=== PATIENT | female | born 1990 | race American Indian/Alaskan Native ===

== ENCOUNTER 2017-02-12 20:10 | Emergency (ER) | payer SELFPAY ==
[2017-02-12 23:44] VITALS: BP 116/72
== END 2017-02-13 00:19 | disposition left against medical advice (07) ==
LOC: ED 20:10
DX: R51 Headache (principal); M54.9 Dorsalgia, unspecified; V89.2XXA Person injured in unspecified motor-vehicle accident, traffic, initial encounter; Y93.9 Activity, unspecified; Y92.410 Unspecified street and highway as the place of occurrence of the external cause; Y99.9 Unspecified external cause status; Z53.21 Procedure and treatment not carried out due to patient leaving prior to being seen by health care provider

== ENCOUNTER 2021-05-17 11:53 | Emergency (ER) | payer OTHER, MEDICAID ==
[2021-05-17] MEDS ORDERED: SODIUM CHLORIDE 0.9% 1000 ML IV SOLN IV ONE (12:12)
[2021-05-17] MEDS ORDERED: IPRATROPIUM/ALBUTEROL SULFATE 3 ML AMPUL.NEB IH ONE ×2 (12:13→15:12)
[2021-05-17] MEDS ORDERED: methylPREDNISolone Sod Succinate 125 MG/2 ML INJ IV ONE (12:14)
[2021-05-17] MEDS ORDERED: ACETAMINOPHEN 500 MG TAB PO ONE (12:15)
--- NOTE | 2021-05-17 12:19 | Emergency Department Report ---
HPI - General Chief Complaint: Dyspnea/Respdistress Time Seen by Provider: 05/17/21 12:03 - HPI HPI: 30-year-old female with past medical history significant for asthma presents complaining of 3 days of URI symptoms including fever/chills, body aches, and for the past couple days with cough productive of sputum, chest tightness, and shortness of breath. She says her children are also sick at home with upper respiratory infections. She saw her regular doctor over 1 week ago and was prescribed a Medrol Dosepak but did not take it. She also was prescribed a nebulizer which she has but has not used. She is only used her albuterol inhaler once, this morning. She is also been taking Mucinex. Her chest pain is nonradiating but feels like congestion in her chest which makes it difficult to take a deep breath. Her LMP started 5 days ago. Denies any associated headache, vision change, neck pain, syncope, abdominal pain, nausea, dysuria, back pain, focal weakness, sensory changes, or any other complaints. She is not vaccinated against COVID-19. ED Past Medical Hx - Past Medical History Hx Hypertension: No Hx Diabetes: No Hx Deep Vein Thrombosis: No Hx Sickle Cell Disease: No Hx Seizures: No Hx Kidney Stones: Yes Hx Asthma: Yes - Social History Smoking Status: Never Smoker Substance Use Type: None - Medications Home Medications: Home Medications Medication Instructions Recorded Confirmed Last Taken Type Albuterol 0.63% NEBS 1 inh INHALATION QID PRN 05/17/21 05/17/21 Unknown History Azithromycin [Zithromax Z-JOYCE] 0 mg PO DAILY #1 pack 05/17/21 Unknown Rx Ipratropium/Albuter (Nf) 1 puff INHALATION QID PRN 05/17/21 05/17/21 Unknown History methylPREDNISolone [Medrol 4MG 4 mg PO DAILY #1 tab.ds.pk 05/17/21 Unknown Rx DOSEPAK (21 tabs)] ED Review of Systems ROS: Stated complaint: SOB/FEVER Other details as noted in HPI Constitutional: chills, fever, malaise Eyes: denies: eye pain, vision change ENT: congestion. denies: throat pain Respiratory: cough, shortness of breath Cardiovascular: chest pain. denies: palpitations, edema, syncope Gastrointestinal: denies: abdominal pain, nausea, vomiting Genitourinary: denies: dysuria, frequency Musculoskeletal: denies: back pain, arthralgia Skin: denies: rash, lesions Neurological: denies: headache, weakness, numbness Hematological/Lymphatic: denies: easy bleeding Physical Exam - Physical Exam Vital Signs: Vital Signs 05/17/21 11:55 Temperature 102.9 F H Pulse Rate 132 H Respiratory 20 Rate Blood Pressure 139/77 O2 Sat by Pulse 98 Oximetry Physical Exam: GENERAL: Well developed and well nourished. No acute distress HEAD: Normocephalic. No obvious signs of trauma. ENT: Very dry mucous membranes. EYES: Extraocular movements are intact. Pupils are equal round and reactive to light bilaterally NECK: Supple. Full ROM is intact. Trachea is midline. LUNGS: Tachypneic but not in respiratory distress. Equal chest rise bilaterally. Coarse breath sounds throughout. Prolonged expiratory phase without discrete rales or wheezes. CARDIOVASCULAR: Tachycardic but with regular rhythm. No murmurs or rubs. VASCULAR: Cap refill < 2 seconds. 2+ peripheral pulses. ABDOMEN: Abdomen is soft and nondistended. There is no significant tenderness, guarding or rebound. SKIN: Skin is warm and dry NEURO: Patient is awake, alert, and oriented. 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 No focal deficits. Normal motor and sensory exam throughout. Normal speech. MUSCULOSKELETAL: No obvious deformities. No significant tenderness. Normal ROM throughout. BACK/SPINE: No costovertebral angle tenderness. ED Course Vital Signs 05/17/21 11:55 Temperature 102.9 F H Pulse Rate 132 H Respiratory 20 Rate Blood Pressure 139/77 O2 Sat by Pulse 98 Oximetry ED Medical Decision Making - Lab Data Result diagrams: 05/17/21 12:39 05/17/21 12:26 - EKG Data -: EKG Interpreted by Pa - EKG Data 05/17/21 14:17 Sinus tachycardia. Normal axis. Normal intervals. No ectopy. No significant ST segment or T wave abnormalities - Radiology Data Radiology results: report reviewed - Medical Decision Making 30-year-old female with history of asthma presenting with 3 days of URI symptoms including chest tightness and shortness of breath as well as productive cough. On initial assessment she is febrile with a temp of 102.9 and tachycardic in the 130s. She has normal oxygen saturation on room air. On physical examination she has very dry mucous membranes. She is tachycardic. She has coarse breath sounds throughout the bilateral lung gay with prolonged expiratory phases but no discrete wheezes or rales. We will initiate the sepsis order set and draw full set of labs and cultures. Will obtain EKG and chest x-ray. We will give 2 L of IV fluids. We will give 125 mg of IV Solu-Medrol and DuoNeb and reassess. Labs reveal no significant leukocytosis but hemoglobin is elevated at 16 consistent with severe dehydration with hemoconcentration. Kidney function is within normal limits and there are no significant electrolyte abnormalities. Chest x-ray reveals no acute abnormalities. On repeat assessment, the patient reports that she feels much improved. However she remains tachycardic and fluids are still running. At 4:20 PM she remains tachycardic in the 110s but reports much improved symptoms. Lung auscultation reveals improved lung gay without prolonged expiratory phase. Nonetheless, given that she remains tachycardic even after greater than 30 mL/kg of IV fluid we will obtain CTA of the chest to assess for evidence of PE versus pneumonia versus other intrathoracic pathology. CTA of the chest reveals no evidence of PE but there are bilateral pulmonary infiltrates consistent with atypical/viral pneumonia. On repeat assessment, the patient's tachycardia has almost entirely resolved. I discussed the results of her CT findings as well as the labs revealing her severe dehydration. We discussed options for management and she will go home with a prescription for Z-Joyce, Medrol Dosepak, and has her home nebulizer already. She will follow up with the primary care doctor in a few days. She will self isolate at home given the possibility of COVID-19 pneumonia. She was encouraged to stay hydrated. Patient expressed understanding agreement with this plan of care. Critical care attestation.: If time is entered above; I have spent that time in minutes in the direct care of this critically ill patient, excluding procedure time. ED Disposition Clinical Impression: Suspected COVID-19 virus infection, URI (upper respiratory infection), Pneumonia, Dehydration Disposition: 01 HOME / SELF CARE / HOMELESS Is pt being admited?: No Instructions: Bacterial Pneumonia (ED), Upper Respiratory Infection, Adult, Community-Acquired Pneumonia, Adult, Dehydration, Adult, COVID-19 Frequently Asked Questions, COVID-19 Prescriptions: methylPREDNISolone [Medrol 4MG DOSEPAK (21 tabs)] 4 mg PO DAILY #1 tab.ds.pk Azithromycin [Zithromax Z-JOYCE] 0 mg PO DAILY #1 pack Referrals: PRIMARY CARE, [Primary Care Provider] - 3-5 Days
[2021-05-17 13:37] LABS: Basophils % (Auto) 0.6 % (0.0-1.8); Eosinophils % (Auto) 0.3 % (0.0-4.3); Hematocrit 49.4 % (30.3-42.9); Lymphocytes # (Auto) 0.7 K/mm3 (1.2-5.4); Mean Corpuscular HGB Conc 32 % (30-34); Mean Corpuscular Volume 94 fl (79-97); Monocytes # (Auto) 0.8 K/mm3 (0.0-0.8); Monocytes % (Auto) 12.3 % (0.0-7.3); Platelet Count 207 K/mm3 (140-440); Red Blood Count 5.28 M/mm3 (3.65-5.03); Red Cell Distribution Width 11.9 % (13.2-15.2)
[2021-05-17 13:48] LABS: INR 0.9 (0.87-1.13); Partial Thromboplastin Time 27.8 Sec. (24.2-36.6)
[2021-05-17 13:54] LABS: Alanine Aminotransferase 56 units/L (7-56); Albumin 4.5 g/dL (3.9-5); BUN/Creatinine Ratio 16; Bilirubin,Direct < 0.2 mg/dL (0-0.2); Blood Urea Nitrogen 11 mg/dL (7-17); Calcium 9.4 mg/dL (8.4-10.2); Hemolysis Index 16
--- NOTE | 2021-05-17 15:08 | XRay Report ---
CHEST 1 VIEW 05/17/2021 2:03 PM INDICATION / CLINICAL INFORMATION: SOB, , CP. COMPARISON: 03/30/2013 FINDINGS: SUPPORT DEVICES: None. HEART / MEDIASTINUM: No significant abnormality. LUNGS / PLEURA: No significant pulmonary or pleural abnormality. No pneumothorax. ADDITIONAL FINDINGS: No significant additional findings. IMPRESSION: 1. No acute findings. Signer Name: Julius Mackay MD Signed: 05/17/2021 3:04 PM Workstation Name: [id number]
[2021-05-17 15:24] LABS: Bilirubin,Urine NEG (Negative); Blood,Urine SM (Negative); Color,Urine Straw (Yellow); Mucus,Urine FEW /HPF; Protein,Urine <15 mg/dL mg/dL (Negative); Urobilinogen,Urine < 2.0 mg/dL (<2.0); WBC,Urine < 1.0 /HPF (0.0-6.0)
--- NOTE | 2021-05-17 17:16 | Cat Scan Report ---
CTA CHEST WITH CONTRAST INDICATION / CLINICAL INFORMATION: Fever, chest pain. TECHNIQUE: Axial CT images were obtained through the chest after injection of 100 cc of Omnipaque 350 IV contrast. 3 plane MIP and/or 3D reconstructions were produced. All CT scans at this location are performed using CT dose reduction for ALARA by means of automated exposure control. COMPARISON: None available. FINDINGS: PULMONARY ARTERIES: No pulmonary emboli. THORACIC AORTA: No significant abnormality. HEART: No significant abnormality. CORONARY ARTERY CALCIFICATION: None. MEDIASTINUM / BERT: No significant abnormality. PLEURA: No pleural effusion. No pneumothorax. LUNGS: There are groundglass pulmonary opacities in the right upper lobe and in the left lower lobe l ikely representing pneumonia including atypical pneumonia. There is peribronchial thickening most pro minent in the right lower lobe. There is linear scar or atelectasis in the right middle lobe. ADDITIONAL FINDINGS: None. UPPER ABDOMEN: No acute findings. SKELETAL STRUCTURES: No acute abnormality. IMPRESSION: 1. No CT evidence for pulmonary embolism. 2. There are bilateral pulmonary opacities and peribronchial thickening characteristic of pneumonia/p neumonitis including atypical or viral pneumonia. Signer Name: Julius Mackay MD Signed: 05/17/2021 5:11 PM Workstation Name: [id number]
[2021-05-17 18:17] VITALS: BP 135/91
--- NOTE | 2021-05-20 14:15 | Electrocardiograph Report ---
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
== END 2021-05-17 18:46 | disposition home or self-care (01) ==
LOC: ED 11:53
DX: Z20.822 Contact with and (suspected) exposure to COVID-19 (principal); J06.9 Acute upper respiratory infection, unspecified; J18.9 Pneumonia, unspecified organism; E86.0 Dehydration
CPT/HCPCS: 36415; 71045; 71275; 80048; 80076; 81001; 82140; 83735; 84484; 84703; 85025; 85610; 85730; 87040; 93005; 94640; 96374; 96375; 99285; J2930; J7030; Q9967; 94644; Q0162

== ENCOUNTER 2021-10-01 08:17 | Emergency (ER) | payer OTHER, MEDICAID ==
[2021-10-01] MEDS ORDERED: BENZONATATE 100 MG CAP PO ONE (10:36)
[2021-10-01] MEDS ORDERED: ACETAMINOPHEN 500 MG TAB PO ONE (10:36)
--- NOTE | 2021-10-01 11:12 | XRay Report ---
CHEST PA AND LATERAL VIEWS INDICATION: cough. COMPARISON: None. FINDINGS: Support devices: None. Heart: Within normal limits. Lungs/Pleura: There is ill-defined opacity within the lingular segment of the left upper lobe. The ri ght lung is clear. No pleural abnormality. IMPRESSION: 1. Lingular pneumonia. Signer Name: Ty Ballard MD Signed: 10/01/2021 11:03 AM Workstation Name: [email or web address]
[2021-10-01 11:20] VITALS: BP 124/89
--- NOTE | 2021-10-01 12:03 | Emergency Department Report ---
- General Chief Complaint: Upper Respiratory Infection Stated Complaint: CHEST/EAR/HEAD PAIN Time Seen by Provider: 10/01/21 09:58 Source: patient Mode of arrival: Ambulatory Limitations: No Limitations - History of Present Illness Initial Comments: This is a 30-year-old female nontoxic, well nourished in appearance, no acute signs of distress presents to the ED with c/o of productive cough, fever, chills, body aches, rhinorrhea, nasal congestion x several days. Patient stated is COVID vaccinated. Patient describes productive cough as yellow mucus production. Patient denies any sick contacts. Patient denies any recent travels, long car, recent hospital stays. Patient denies any calf pain or calf tenderness. Patient denies any chest pain, short of breath, nausea, vomiting, hemoptysis, numbness, tingling, headache or stiff neck. Patient denies any allergies or significant past medical history. MD Complaint: fever, cough, rhinorrhea, nasal congestion -: days(s) Severity: mild Severity scale (0 -10): 3 Quality: aching Consistency: constant Improves With: nothing Worsens With: nothing Associated Symptoms: fever, chills, rhinorrhea, nasal congestion, cough. denies: myalgias, diaphoresis, headache, sore throat, stiff neck, chest pain, shortness of breath, abdominal pain, nausea, vomiting, diarrhea, dysuria, rash, confusion, right sweats, weight loss, epistaxis, hoarseness, ear pain Treatments Prior to Arrival: none - Related Data Home Medications Medication Instructions Recorded Confirmed Last Taken Albuterol 0.63% NEBS 1 inh INHALATION QID PRN 05/17/21 10/01/21 Unknown Ipratropium/Albuter (Nf) 1 puff INHALATION QID PRN 05/17/21 10/01/21 Unknown Previous Rx's Medication Instructions Recorded Last Taken Type Azithromycin [Zithromax Z-JOYCE] 0 mg PO DAILY #1 pack 05/17/21 Unknown Rx methylPREDNISolone [Medrol 4MG 4 mg PO DAILY #1 tab.ds.pk 05/17/21 Unknown Rx DOSEPAK (21 tabs)] Acetaminophen [Acetaminophen 8 650 mg PO Q8H PRN #12 tab 10/01/21 Unknown Rx Hour] Azithromycin [Zithromax Z-JOYCE] 250 mg PO DAILY #6 tab 10/01/21 Unknown Rx Benzonatate [Tessalon Perles] 100 mg PO Q8HR PRN #12 cap 10/01/21 Unknown Rx Allergies Allergy/AdvReac Type Severity Reaction Status Date / Time No Known Allergies Allergy Verified 10/01/21 11:21 ED Review of Systems ROS: Stated complaint: CHEST/EAR/HEAD PAIN Other details as noted in HPI Comment: All other systems reviewed and negative Constitutional: chills, fever Eyes: denies: eye pain, eye discharge, vision change ENT: congestion. denies: ear pain, throat pain Respiratory: cough. denies: shortness of breath, wheezing Cardiovascular: denies: chest pain, palpitations Endocrine: no symptoms reported Gastrointestinal: denies: abdominal pain, nausea, diarrhea Genitourinary: denies: urgency, dysuria, discharge Musculoskeletal: denies: back pain, joint swelling, arthralgia Skin: denies: rash, lesions Neurological: denies: headache, weakness, paresthesias Psychiatric: denies: anxiety, depression Hematological/Lymphatic: denies: easy bleeding, easy bruising ED Past Medical Hx - Past Medical History Hx Hypertension: No Hx Diabetes: No Hx Deep Vein Thrombosis: No Hx Renal Disease: Yes Hx Sickle Cell Disease: No Hx Seizures: No Hx Kidney Stones: Yes Hx Asthma: No - Social History Smoking Status: Never Smoker Substance Use Type: None - Medications Home Medications: Home Medications Medication Instructions Recorded Confirmed Last Taken Type Albuterol 0.63% NEBS 1 inh INHALATION QID PRN 05/17/21 10/01/21 Unknown History Azithromycin [Zithromax Z-JOYCE] 0 mg PO DAILY #1 pack 05/17/21 10/01/21 Unknown Rx Ipratropium/Albuter (Nf) 1 puff INHALATION QID PRN 05/17/21 10/01/21 Unknown History methylPREDNISolone [Medrol 4MG 4 mg PO DAILY #1 tab.ds.pk 05/17/21 10/01/21 Unknown Rx DOSEPAK (21 tabs)] Acetaminophen [Acetaminophen 8 650 mg PO Q8H PRN #12 tab 10/01/21 Unknown Rx Hour] Azithromycin [Zithromax Z-JOYCE] 250 mg PO DAILY #6 tab 10/01/21 Unknown Rx Benzonatate [Tessalon Perles] 100 mg PO Q8HR PRN #12 cap 10/01/21 Unknown Rx ED Physical Exam - General Limitations: No Limitations General appearance: alert, in no apparent distress - Head Head exam: Present: atraumatic, normocephalic - Eye Eye exam: Present: normal appearance - ENT ENT exam: Present: normal exam, normal orophraynx, TM's normal bilaterally, normal external ear exam - Neck Neck exam: Present: normal inspection, full ROM. Absent: tenderness, meningismus, lymphadenopathy - Respiratory Respiratory exam: Present: normal lung sounds bilaterally. Absent: respiratory distress, wheezes, rales, rhonchi, stridor, chest wall tenderness, accessory muscle use, decreased breath sounds, prolonged expiratory - Cardiovascular Cardiovascular Exam: Present: normal rhythm, tachycardia, normal heart sounds. Absent: bradycardia, irregular rhythm, systolic murmur, diastolic murmur, rubs, gallop - GI/Abdominal GI/Abdominal exam: Present: soft. Absent: distended, tenderness - Extremities Exam Extremities exam: Present: full ROM - Back Exam Back exam: Present: full ROM - Neurological Exam Neurological exam: Present: alert, oriented X3, normal gait - Psychiatric Psychiatric exam: Present: normal affect, normal mood - Skin Skin exam: Present: warm, dry, intact, normal color. Absent: rash ED Course Vital Signs 10/01/21 10/01/21 08:44 11:18 Temperature 99.9 F H 99.6 F Pulse Rate 102 H 74 Respiratory 16 16 Rate Blood Pressure 133/81 Blood Pressure 124/89 [Left] O2 Sat by Pulse 99 97 Oximetry - Reevaluation(s) Reevaluation #1: 10/01/21 12:00 Patient is speaking in full sentences with no signs of distress noted. ED Medical Decision Making - Radiology Data [facility] [address] [place] [address] XRay Report Signed Patient: MERCEDEZ BREAUX MR#: [id number] : 1990 Acct:[id number] Age/Sex: 30 / F ADM Date: 10/01/21 Loc: ED Attending Dr: Ordering Physician: MIRACLE PA NP Date of Service: 10/01/21 Procedure(s): XR chest routine 2V Accession Number(s): [id number] cc: MIRACLE PA NP Fluoro Time In Minutes: CHEST PA AND LATERAL VIEWS INDICATION: cough. COMPARISON: None. FINDINGS: Support devices: None. Heart: Within normal limits. Lungs/Pleura: There is ill-defined opacity within the lingular segment of the left upper lobe. The right lung is clear. No pleural abnormality. IMPRESSION: 1. Lingular pneumonia. Signer Name: Ty Ballard MD Signed: 10/01/2021 11:03 AM Workstation Name: [email or web address] Transcribed By: SW Dictated By: Ty Ballard MD Electronically Authenticated By: Ty Ballard MD Signed Date/Time: 10/01/211102 DD/ 01 TD/TT: - Medical Decision Making This is a 30-year-old female that presents with pneumonia. Patient is stable and was examined by me. Chest x-ray has been obtained and dictated by radiologist with normal exam. Patient is notified of x-ray results with no questions noted. Patient does meet clinical concerns of COVID-19 and patient was instructed and educated on signs and symptoms and to self quarantine and seek medical attention as soon as possible if symptoms does occur. Patient will be discharged with zpak. Patient was instructed to increase hydration, rest and take Tylneol for fever episodes. Patient received Tylenol and tesslone perrls in the ED. Vitals stable. Patient is nonfebrile and normal heart rate. Patient was instructed Follow-up with a primary care doctor in 3-5 days or if symptoms worsen and continue return to emergency room as soon as possible. At time time of discharge, the patient does not seem toxic or ill in appearance. No acute signs of distress noted. Patient agrees to discharge treatment plan of care. No further questions noted by the patient.nt. Critical care attestation.: If time is entered above; I have spent that time in minutes in the direct care of this critically ill patient, excluding procedure time. ED Disposition Clinical Impression: PNA (pneumonia) Qualifiers: Pneumonia type: due to unspecified organism Laterality: left Lung location: upper lobe of lung Qualified Code(s): J18.9 - Pneumonia, unspecified organism Disposition: HOME / SELF CARE / HOMELESS Is pt being admited?: No Does the pt Need Aspirin: No Condition: Stable Instructions: Bacterial Pneumonia (ED), Community-Acquired Pneumonia, Adult Additional Instructions: Follow-up with a primary care doctor in 3-5 days or if symptoms worsen and continue return to emergency room as soon as possible. Your symptoms appear most consistent with PNA. However, given this current pandemic, COVID-19 is in the differential of possibilities. Despite your previous negative COVID-19 test, I do recommend repeat outpatient Covid 19 testing. In the meantime, isolate/quarantine yourself and stay away from anyone who is elderly, immunocompromised or chronically ill. Please see your nearest health department or primary care doctor that you are referred to for COVID testing. Increased rest, hydration, and take [id number] Tylenol as directed from instructions label for pain/fever episode. Prescriptions: Acetaminophen [Acetaminophen 8 Hour] 650 mg PO Q8H PRN #12 tab PRN Reason: fever/pain Benzonatate [Tessalon Perles] 100 mg PO Q8HR PRN #12 cap PRN Reason: Cough Azithromycin [Zithromax Z-JOYCE] 250 mg PO DAILY #6 tab Referrals: OPAL BLOCK MD [Primary Care Provider] - 3-5 Days PRIMARY CAREMD [Referring] - 3-5 Days Time of Disposition: 12:02
== END 2021-10-01 12:11 | disposition home or self-care (01) ==
LOC: ED 08:17
DX: R09.81 Nasal congestion (principal); J18.9 Pneumonia, unspecified organism
CPT/HCPCS: 71046; 99283